=== PATIENT | female | born 1990 | race Caucasian/White ===

== ENCOUNTER 2025-05-15 13:51 | Outpatient (AMB) | payer MEDICAID, SELFPAY ==
[2025-05-15 14:03] VITALS: BP 123/75; PULSE 91; RESP 18; TEMP 36.3; O2SAT 98; BMI 31.4
--- NOTE | 2025-05-15 14:03 | GSCOFFNT_ITS ---
[facility] - [facility] 05/15/25 14:03 Height 1.68 m Height Method Measured Weight 88.224 kg Weight Measurement Method Standing Scale BMI 31.4 BP 123/75 Blood Pressure Source Automatic Cuff Blood Pressure Location Left Upper Arm Position Sitting Respiration 18 Pulse 91 Pulse Source Monitor Temp 97.4 F Temp Source Temporal Artery Scan Pulse Oximetry (%) 98 Oxygen Delivery Method Room Air Med/Allergies Allergies & Medications Allergies No Known Allergies Allergy (Verified 05/15/25 14:04) Medication Reconciliation acetaminophen 500 mg tablet (Tylenol Extra Strength) 500 mg PO Q6H PRN 05/15/25 [History Confirmed 05/15/25] MA Intake Visit Data Collection New Patient or Established: Established Patient (seen at [facility] within 3 years) Seen by Clinical Staff ONLY (RN/MA): No Reason for Visit:: UMBILICAL HERNIA Pain Present Currently: Yes Pain Location: Abdomen Pain scale:: 5 Pain Scale Used: Lizama-Mcmahon/Numerical [place] Mold Maker Required: No PCP or OBGYN visit in last 3 months: Yes Hx Now: No Do You Feel Safe at Home: Yes Authorities Contacted: N/A Smoking Status Smoking Status: Never smoker Immunization / Flu Flu Vaccine in the Last 12 Months: Yes Flu Vaccine Exclusion Criteria: Already Received Past Medical History Social History SMOKING STATUS: Smoking status: Never smoker HPI HPI Narrative C/C: Abdominal pain secondary to umbilical hernia. Pt is currently complaining of abdominal pain secondary to an umbilical hernia that started 4 years prior during her fourth . Pt reports that the pain worsens when straining and when putting pressure on the area. Currently, the pain is 5/10 and is described as a sharp, burning, stabbing pain. The pain begins at the umbilicus and pt states it radiates to her LLQ. Pt denies nausea, vomiting, diarrhea, fever, chills, weight loss nor weight gain. PMH: None PSHx: None Meds: Tylenol PRN Allergies: NKDA Social hx: Nonsmoker ROS Review of Systems Systems Reviewed: All systems reviewed, normal except as documented Constitutional Comments: Pt denies fever, chills, weight loss, or weight gain. Cardiovascular Comments: Pt denies palpitations, chest pain, nor edema in all four extremities. Respiratory Comments: Pt denies cough, wheezing, nor SOB. Gastrointestinal Comments: PT denies nausea, vomiting, diarrhea. Integumentary/Breasts Comments: Pt denies any jaundice, skin rashes, or any new skin lesions. Objective/Exam Objective Laboratory: None Imaging: None General General Appearance: alert, cooperative and well groomed Resp Respiratory exam: Absent respiratory distress Abdominal Abdominal exam: Present soft and hernia (reducible umbilical hernia with tenderness to palpation, approx 2cm defect, no erythema) Assessment & Plan Diagnosis / Problem List (1) Umbilical hernia: Status: Acute Qualifiers: Obstruction and gangrene presence: without obstruction or gangrene Qualified Code(s): K42.9 - Umbilical hernia without obstruction or gangrene Assessment & Plan: 34F presenting with symptomatic umbilical hernia. I explained benefits/risks of surgery including bleeding, infection and hernia recurrence. I also explained that depending on the size of the hernia, a mesh will likely be recommended in order to reduce the risk of recurrence. All questions were answered and pt is agreeable to proceeding Plan: Abdominal US to assess size for hernia Will follow up in 2 weeks to discuss surgery Orders: Orders US abdomen limited 1 Week K42.9 - Umbilical hernia without obstruction or gangrene Office Procedures GNS Level of Care Nursing/Assessment Patient Status: Established Patient Nursing Assessment/Reassesment: Medication Reconciliation, Update PMH in EMR and Vital Signs Coordination of Care: Complex Care and Chronic Disease 1-5, Consent,records obtained, informed consent, Education Simp Pt/Fam, Results/Orders obtained and Staff clarify orders Established Patient Charge Established Patient Point Assignment: 90 Established Patient Point Charge: EP Level 3 (80-115) Patient Portal Questionaires Social History Tobacco History Smoking Status: Never smoker Domestic Abuse History Do You Feel Safe at Home: Yes Review of Systems Report any current symptoms Only answer those that you have currently: Past Medical History Past Medical History Have you ever been diagnosed with any of the following: Surgical History Additional Surgical History: Pt denies any past surgical history.
== END 2025-05-15 14:35 | disposition home or self-care (01) ==
PROVIDERS: PCP Nurse Practitioner; Referring Provider Nurse Practitioner; Supervising Provider Surgery; Visit Provider Surgery
DX: K42.9 Umbilical hernia without obstruction or gangrene (principal)
CPT/HCPCS: 99213; G0463

== ENCOUNTER → 2025-06-14 | Outpatient (CLI) | payer MEDICAID, SELFPAY ==
[2025-06-12 16:17] LABS: HCG Qualitative,Urine Negative
--- NOTE | 2025-06-14 13:00 | XR_ITS ---
Examination: CT abdomen without intravenous contrast. Coronal 2-D reconstructions. Sagittal 2-D reconstructions. Date and time of exam:June 14, 2025, 1331 hours INDICATIONS: Mid abdominal pain beginning 4 years ago CTDI: vol (mGy): 14.2 DLP: (mGycm): 565 Technique: Axial images of the abdomen have been obtained, 3 mm slice thickness, without intravenous contrast 2-D sagittal coronal reconstructions Low dose protocols were performed. One or more of the following dose reduction techniques were used; automated exposure control, adjustment of the mA and/or KV according to patient size, use of iterative reconstruction technique. Findings: No focal liver or splenic lesions No gallstones No pancreatic or adrenal mass No renal or ureteral calculi, no hydronephrosis Aorta normal size No bowel obstruction 21 mm fat-containing umbilical hernia Mild osteopenia IMPRESSION: No renal or ureteral calculi, no hydronephrosis Normal appendix No bowel obstruction 21 mm fat-containing umbilical hernia
== END | disposition home or self-care (01) ==
PROVIDERS: PCP Internal Medicine; Referring Provider Surgery; Visit Provider Surgery
DX: K42.9 Umbilical hernia without obstruction or gangrene (principal)
CPT/HCPCS: 74150; 81025

== ENCOUNTER → 2025-06-27 | Outpatient (CLI) | payer MEDICAID, SELFPAY ==
--- NOTE | 2025-06-27 14:30 | XR_ITS ---
Examination: Abdomen sonogram, Limited Date and time of exam: June 27, 2025, 1454 hours INDICATIONS: Umbilical hernia pain for years, CT abdomen 06/14/2000 2521 mm fat-containing umbilical hernia Technique: Real-time hooker scale transabdominal sonographic images of the upper abdomen obtained. Findings: 6.2 x 4.0 x 5.0 cm hernia sac with peristalsis in the umbilical region, hernia defect at the abdomen 2.3 cm IMPRESSION: Large umbilical hernia containing bowel
== END | disposition home or self-care (01) ==
PROVIDERS: PCP Physician Assistant; Referring Provider Surgery; Visit Provider Surgery
DX: K42.9 Umbilical hernia without obstruction or gangrene (principal)
CPT/HCPCS: 76705

== ENCOUNTER 2025-07-31 13:14 | Outpatient (AMB) | payer MEDICAID, SELFPAY ==
[2025-07-31 13:45] VITALS: BP 124/79; PULSE 102; RESP 19; TEMP 36.6; O2SAT 97; BMI 32.4
--- NOTE | 2025-07-31 13:45 | PD.GSCLVISIT ---
Vital Signs - [facility] 07/31/25 13:45 Height 1.68 m Height Method Stated Weight 91.626 kg Weight Measurement Method Standing Scale BMI 32.4 BP 124/79 Blood Pressure Source Automatic Cuff Blood Pressure Location Left Upper Arm Position Sitting Respiration 19 Pulse 102 H Pulse Source Monitor Temp 97.8 F Temp Source Temporal Artery Scan Pulse Oximetry (%) 97 Oxygen Delivery Method Room Air Med/Allergies Allergies & Medications Allergies No Known Allergies Allergy (Verified 07/31/25 13:46) Medication Reconciliation acetaminophen 500 mg tablet (Tylenol Extra Strength) 500 mg PO Q6H PRN 05/15/25 [History Confirmed 07/31/25] MA Intake Visit Data Collection New Patient or Established: Established Patient (seen at [facility] within 3 years) Seen by Clinical Staff ONLY (RN/MA): No Reason for Visit:: UMBILICAL HERNIA Pain Present Currently: No Psych Sales Specialist Required: No PCP or OBGYN visit in last 3 months: Yes Hx Now: No Do You Feel Safe at Home: Yes Authorities Contacted: N/A Smoking Status Smoking Status: Never smoker Immunization / Flu Flu Vaccine in the Last 12 Months: Yes Flu Vaccine Exclusion Criteria: Already Received Past Medical History Social History SMOKING STATUS: Smoking status: Never smoker HPI HPI Narrative HISTORY OF PRESENT ILLNESS I, Anny Clark, have obtained verbal consent from the patient, to be recorded during this encounter which may include, but not limited to, medical history, examination, treatment plans, and relevant health information.? Patient was informed that recording will be read and reviewed by myself before inclusion in the medical chart. The patient is here for a follow-up of an umbilical hernia. She reports intermittent pain in the region of the hernia, accompanied by nausea. She also experiences difficulty in bending over due to the hernia. Denies any other changes to her health since last visit ROS Review of Systems Systems Reviewed: All systems reviewed, normal except as documented Constitutional Comments: Pt denies fever, chills, weight loss, or weight gain. Cardiovascular Comments: Pt denies palpitations, chest pain, nor edema in all four extremities. Respiratory Comments: Pt denies cough, wheezing, nor SOB. Gastrointestinal Comments: PT denies nausea, vomiting, diarrhea. Integumentary/Breasts Comments: Pt denies any jaundice, skin rashes, or any new skin lesions. Objective/Exam Objective Laboratory: None Imaging: None General General Appearance: alert, cooperative and well groomed Resp Respiratory exam: Absent respiratory distress Abdominal Abdominal exam: Present soft and hernia (umbilical hernia with chronic skin discoloration, mild tenderness to palpation) Assessment & Plan Diagnosis / Problem List (1) Umbilical hernia: Status: Acute Qualifiers: Obstruction and gangrene presence: without obstruction or gangrene Qualified Code(s): K42.9 - Umbilical hernia without obstruction or gangrene Assessment & Plan: The hernia measures slightly more than 2 cm, as confirmed by both ultrasound and CT scan. Occasional pain and difficulty bending over are reported. Surgical intervention with mesh placement is recommended to reduce the risk of recurrence. Risks associated with the procedure include hernia recurrence, infection, and postoperative seroma. The patient prefers to schedule the surgery in early August. Avoid heavy lifting for 6 weeks post-surgery. Plan: Will schedule umbilical hernia repair with mesh in early Aug per pt preference Office Procedures GNS Level of Care Nursing/Assessment Patient Status: Established Patient Nursing Assessment/Reassesment: Medication Reconciliation, Update PMH in EMR and Vital Signs Coordination of Care: Complex Care and Chronic Disease 1-5, Consent,records obtained, informed consent, Education Simp Pt/Fam, Results/Orders obtained and Staff clarify orders Established Patient Charge Established Patient Point Assignment: 90 Established Patient Point Charge: EP Level 3 (80-115) Patient Portal Questionaires Social History Tobacco History Smoking Status: Never smoker Domestic Abuse History Do You Feel Safe at Home: Yes Review of Systems Report any current symptoms Only answer those that you have currently: Past Medical History Past Medical History Have you ever been diagnosed with any of the following: Surgical History Additional Surgical History: Pt denies any past surgical history.
== END 2025-07-31 14:11 | disposition home or self-care (01) ==
LOC: HODSRG 13:14
PROVIDERS: PCP Physician Assistant; Referring Provider Physician Assistant; Supervising Provider Surgery; Visit Provider Surgery
DX: K42.9 Umbilical hernia without obstruction or gangrene (principal)
CPT/HCPCS: 99213; G0463

== ENCOUNTER 2025-08-28 11:17 | Outpatient (AMB) | payer MEDICAID, SELFPAY ==
[2025-08-28 11:23] VITALS: BP 117/78; PULSE 87; RESP 18; TEMP 36.3; O2SAT 98; BMI 32.6
--- NOTE | 2025-08-28 11:23 | PD.GSCLVISIT ---
Vital Signs - [facility] 08/28/25 11:23 Height 1.68 m Height Method Measured Weight 92.249 kg Weight Measurement Method Standing Scale BMI 32.6 BP 117/78 Blood Pressure Source Automatic Cuff Blood Pressure Location Left Upper Arm Position Sitting Respiration 18 Pulse 87 Pulse Source Monitor Temp 97.3 F Temp Source Temporal Artery Scan Pulse Oximetry (%) 98 Oxygen Delivery Method Room Air Med/Allergies Allergies & Medications Allergies No Known Allergies Allergy (Verified 08/28/25 11:24) Medication Reconciliation acetaminophen 500 mg tablet (Tylenol Extra Strength) 500 mg PO Q6H PRN 05/15/25 [History Confirmed 08/28/25] MA Intake Visit Data Collection New Patient or Established: Established Patient (seen at [facility] within 3 years) Seen by Clinical Staff ONLY (RN/MA): No Reason for Visit:: PRE OP HERNIA REPAIR Pain Present Currently: No Pain Scale Used: Lizama-Mcmahon/Numerical Telephone Exchange Operator Required: No PCP or OBGYN visit in last 3 months: Yes Hx Now: No Do You Feel Safe at Home: Yes Authorities Contacted: N/A Smoking Status Smoking Status: Never smoker Immunization / Flu Flu Vaccine in the Last 12 Months: Yes Flu Vaccine Exclusion Criteria: Already Received Past Medical History Social History SMOKING STATUS: Smoking status: Never smoker HPI HPI Narrative 35F with symptomatic umbilical hernia here for preoperative evaluation. Pt reports ongoing discomfort from the hernia but otherwise no changes in her health, no new concerns or questions ROS Review of Systems Systems Reviewed: All systems reviewed, normal except as documented Objective/Exam General General Appearance: alert, cooperative and well groomed Resp Respiratory exam: Absent respiratory distress Abdominal Abdominal exam: Present soft and hernia (umbilical hernia with mild tenderness, no overlying skin changes); Absent distention or tenderness Results CT, US reviewed Assessment & Plan Diagnosis / Problem List (1) Umbilical hernia: Status: Acute Qualifiers: Obstruction and gangrene presence: without obstruction or gangrene Qualified Code(s): K42.9 - Umbilical hernia without obstruction or gangrene Assessment & Plan: 35F with symptomatic umbilical hernia planned for open repair with mesh. Risks associated with the procedure include hernia recurrence, infection, and postoperative seroma. All questions were answered and pt is agreeable to proceeding Office Procedures GNS Level of Care Nursing/Assessment Patient Status: Established Patient Nursing Assessment/Reassesment: Medication Reconciliation, Update PMH in EMR and Vital Signs Coordination of Care: Complex Care and Chronic Disease 1-5, Education Complex Pt/Fam, Consent,records obtained, informed consent, Results/Orders obtained and Staff clarify orders Established Patient Charge Established Patient Point Assignment: 95 Established Patient Point Charge: EP Level 3 (80-115) Patient Portal Questionaires Social History Tobacco History Smoking Status: Never smoker Domestic Abuse History Do You Feel Safe at Home: Yes Review of Systems Report any current symptoms Only answer those that you have currently: Past Medical History Past Medical History Have you ever been diagnosed with any of the following:
== END 2025-08-28 11:35 | disposition home or self-care (01) ==
LOC: HODSRG 11:17
PROVIDERS: PCP Physician Assistant; Referring Provider Physician Assistant; Supervising Provider Surgery; Visit Provider Surgery
DX: K42.9 Umbilical hernia without obstruction or gangrene (principal)
CPT/HCPCS: 99213; G0463

== ENCOUNTER 2025-09-06 07:40 | Day surgery (SDC) | payer MEDICAID, SELFPAY ==
[2025-09-05 13:13] VITALS: BMI 32.1
[2025-09-05 14:09] LABS: Basophils # (Auto) 0.1 Thou/mm3 (0.0-0.2); Basophils % (Auto) 1 % (0-2.5); Eosinophils # (Auto) 0.3 Thou/mm3 (0.0-0.5); Eosinophils % (Auto) 2 % (0-10); Hematocrit 43.3 % (36.0-46.0); Hemoglobin 14.3 g/dL (12.0-16.0); Immature Granulocytes Auto 0.03 Thou/mm3 (0.00-0.00); Lymphocytes # (Auto) 4.1 Thou/mm3 (1.0-4.8); Lymphocytes % (Auto) 38 % (10-50); Mean Corpuscular HGB Conc 33.0 g/dl (31.0-37.0); Mean Corpuscular Hemoglobin 27.3 pg (25.0-35.0); Mean Corpuscular Volume 83 fL (80-100); Monocytes # (Auto) 0.7 Thou/mm3 (0.0-0.8); Monocytes % (Auto) 6 % (0-12); Neutrophils # (Auto) 5.7 Thou/mm3 (1.8-7.7); Neutrophils % (Auto) 53 % (37-80); Nucleated Red Blood Cell # 0.00 Thou/mm3 (0.00-0.00); Nucleated Red Blood Cell % 0 /100 WBC (0); Platelet Count 278 Thou/mm3 (140-440); RDW Standard Deviation 40.4 fL (36.4-46.3); Red Blood Count 5.23 Miln/mm3 (4.00-5.20); White Blood Count 10.9 Thou/mm3 (3.6-11.0)
[2025-09-05 14:30] LABS: Anion Gap 10 (7-16); BUN/Creatinine Ratio 18 Ratio (12-20); Blood Urea Nitrogen 11 mg/dL (9-23); Calcium 9.3 mg/dL (8.3-10.6); Carbon Dioxide 25.5 mMol/L (20.0-31.0); Chloride 107 mMol/L (98-107); Creatinine (Component) 0.6 mg/dL (0.6-1.3); Estimated Creatinine Clearance 154.7 mL/min (>60); Glucose 81 mg/dL (74-106); Osmolality,Calculated 281 (275-295); Potassium 3.8 mMol/L (3.4-5.1); Sodium 142 mMol/L (136-145); eGFR > 60 See Note
[2025-09-05 14:32] LABS: INR 1.0 (0.9-1.3); Partial Thromboplastin Time 28.8 Seconds (22.0-36.0); Prothrombin Time 10.5 Seconds (9.0-12.2)
[2025-09-05 14:34] LABS: HCG,Qualitative Serum Negative
[2025-09-06] VITALS (8 sets, daily range): BP systolic 119–140; BP diastolic 67–87; PULSE 93–110; RESP 14–20; TEMP 36.2–36.6; O2SAT 92–98; BMI 32.1
[2025-09-06] MEDS: RINGERS LACTATED 1000 ML 1,000 ML 20 ML IV (08:34)
--- NOTE | 2025-09-06 11:18 | PD.SUROPNT ---
Date of Procedure 09/06/25 Pre Op Diagnosis Symptomatic umbilical hernia Post Op Diagnosis Same Procedure Umbilical hernia repair with mesh Findings 2cm umbilical hernia with sac containing omentum Procedure Description After discussion of risks and benefits, patient was brought to the operating room, SCDs were placed and general anesthesia was induced. She received preoperative antibiotics and was prepped and draped in usual sterile fashion. After timeout an infraumbilical incision was made with a #15 blade. The hernia sac was then encountered and it was freed from the hernia defect using a combination of blunt dissection and electrocautery. The defect was measured to be approximately 2 cm consistent with preoperative imaging. The edges of the hernia defect were freed circumferentially and a 6.[address] mesh was placed inside the defect. The straps were sutured to the fascia using 0 Ethibond and were then trimmed to length. The fascia superior and inferior to the mesh were also sutured to the body of the mesh using 0 Ethibond sutures. The fascia was then reinforced with 2 figure of 8 sutures using 0 Ethibond. The wound was irrigated and counts were confirmed correct. The umbilicus was secured to the fascia using a 2-0 Vicryl suture. The incision was infiltrated with half percent Marcaine for a total of 10 cc. The subcutaneous tissue was reapproximated with 2-0 Vicryl interrupted sutures and the incision was closed with 4-0 Monocryl. The incision was covered with Dermabond. The patient was extubated and brought to PACU in stable condition Pathology / specimen Other (Hernia sac) Estimated Blood Loss 25 Surgeon Anny Clark MD Surgical Staff Operation Date: 09/06/25 09:45 Case Staff Anesthesiologist: Shilo Wellington RN First Assistant: Micki Hagan
--- NOTE | 2025-09-06 11:23 | PD.SURDS ---
Planned Discharge Date 09/06/25 DS: Providers Provider Primary care physician: Dee Queen PA-C Attending Provider on Admission: Anny Clark MD Attending Provider on DC: Anny Clark MD Discharging Provider: Anny Clark MD Diagnosis Discharge Diagnosis (1) Umbilical hernia: Status: Acute Problem List Completed Was Problem List Reviewed/Reconciled?: Yes Exam Vital Signs Temp Pulse Resp BP Pulse Ox 97.2 F 93 14 138/87 H 98 09/06/25 08:11 09/06/25 08:11 09/06/25 08:11 09/06/25 08:11 09/06/25 08:11 Discharge Plan Plan Patient Disposition: HOME (Self Care) Prescriptions/Referrals Prescriptions/Med Rec: New oxycodone-acetaminophen [Percocet] 5-325 mg tablet 1 tab PO Q4H MDD 6 tabs PRN (Reason: pain) Qty: 20 0RF Rx Instructions: Take 1 tablet as needed every 4 hours for moderate to severe pain docusate sodium [Colace] 100 mg capsule 100 mg PO QDAY PRN (Reason: constipation) Qty: 30 0RF Rx Instructions: Take 1 tablet daily as needed for constipation Referrals: Dee Queen PA-C [Primary Care Provider, Emergency Medicine] Anny Clark MD [Physician, General Surgery] Patient/Caregiver Discharge Instructions Other Discharge Activity Instructions:: Avoid lifting objects greater than 10 pounds for 6 weeks You may resume showering in 2 days, on 09/08 Avoid bathing or swimming for 2 weeks It is okay to get incision wet at that time, pat dry after Your incision has skin glue on it which will fall off on its own and does not need to be replaced Your stitches will not need to be removed If you develop worsening pain, nausea/vomiting, fever or concerns about this incision please seek care in ER Education Materials: Anesthesia: General Anesthesia, Surgery Anesthesia After, After Hernia Surgery, Hernia Repair Open Dc, Having Hernia Surgery: Patch Repair, Preventing Surgical Site Infections, Skin Adhesive Wound Care Instructions, [facility] General SDC Instructions- Bahraini Print Language: Bahraini Stand Alone Forms: Cassidy Award Info., Patient Portal Info Letter Discharge Order Discharge Orders: Discharge (Routine); Ordered 09/06/25 Ordered By: Anny Clark Results Results: Laboratory Laboratory results: results reviewed Results: Imaging CT scan - abdomen: report reviewed and image reviewed US - abdomen: report reviewed PROCEDURES: Procedure Date 09/06/25 Procedures Umbilical hernia repair with mesh (1) Umbilical hernia Qualifiers: Obstruction and gangrene presence: without obstruction or gangrene Qualified Code(s): K42.9 - Umbilical hernia without obstruction or gangrene
--- NOTE | 2025-09-06 11:30 | SUR.PHASEI ---
1130: Pt. wakes to name then drifts back to sleep, vitals stable, breathing unlabored, no signs of distress, dressing to ABD CDI, no active bleed noted, report received form MD Wellington and Niurka RUFF.
[2025-09-06] MEDS: fentaNYL CIT INJ 50 mCg/ML AMP 2ML 25 MCG IVP ×3 (11:47→11:58)
--- NOTE | 2025-09-06 11:55 | SUR.PHASEI ---
pt drowsy but arouses to voice, breathing unlabored, dressing to abdomen clean, dry, and intact, report from Fanny RUFF
--- NOTE | 2025-09-06 12:40 | SUR.PHASEII ---
pt awake, alert, able to follow commands, breathing unlabored, dressing to abdomen clean, dry, and intact, discharge instructions given with spouse present, pt able to dress self and transfer to wheelchair with steady gait, pt discharged via wheelchair with all belongings and copies of discharge paperwork.
== END 2025-09-06 12:40 | disposition home or self-care (01) ==
PROVIDERS: Anesthesiology; PCP Physician Assistant; Referring Provider Surgery; Visit Provider Surgery
PROC: (CPT 49591; principal; 2025-09-06 09:30)
DX: K42.9 Umbilical hernia without obstruction or gangrene (principal)
CPT/HCPCS: 49591; 36415; 80048; 84703; 85025; 85610; 85730; A4649; C1781; J0131; J0690; J1100; J1885; J2250; J2405; J2704; J3010; J3490; J7120